=== PATIENT | male | born 1985 ===

== ENCOUNTER 2021-09-08 06:10 | Emergency (ER) | payer SELFPAY ==
[2021-09-08 06:17] VITALS: BMI 24.3
[2021-09-08 06:42] LABS: MANUAL DIFF FLAG NO
[2021-09-08 06:43] LABS: Basophils Absolute Auto 0.1 X10*3/uL (0.0-0.2); Basophils Percent Auto 0.6 % (0-2); Eosinophils Percent Auto 0.4 % (0-4); Hematocrit 43.4 % (42.0-52.0); Hemoglobin 14.1 g/dl (14.0-18.0); Imm Gran Abs Auto 0.03 X10*3/uL (0.00-0.03); Imm Gran Pct Auto 0.4 % (0.0-0.4); Lymphocytes Absolute Auto 1.6 X10*3/uL (1.2-4.9); Lymphocytes Percent Auto 19.4 % (20-40); Mean Corpuscular HGB Conc 32.5 g/dl (31.0-36.0); Mean Corpuscular Hemoglobin 28.7 pg (27.0-33.0); Mean Corpuscular Volume 88.2 fL (80.0-98.0); Mean Platelet Volume 10.5 fL (9.4-12.4); Monocytes Absolute Auto 0.7 X10*3/uL (0.1-1.2); Monocytes Percent Auto 8.4 % (2-11); Neutrophils Absolute Auto 5.8 x10*3/uL (2.0-8.3); Neutrophils Percent Auto 70.8 % (45-73); Platelet Count 316 X10*3/uL (160-400); Red Blood Count 4.92 X10*6/uL (4.60-5.80); Red Cell Distribution Width 11.9 % (11.0-16.0); White Blood Count 8.1 X10*3/uL (4.8-10.8)
--- NOTE | 2021-09-08 06:48 | ED_ITS ---
HPI - Psych General Chief Complaint: Psychiatric Symptoms Stated Complaint: section 12 Time Seen by Provider: 09/08/21 06:48 Source: patient Mode of arrival: EMS Limitations: no limitations History of Present Illness MD complaint: other (paranoid) Onset (ago): month(s) Duration: intermittent History of same: Yes Relieving factors: none Exacerbating factors: none Context: other (states a truck is following him on at work, he brainstorms and thinks people in the streets know what's on his TV, a nanny cam was found in his smoke detector this AM) Associated psychiatric symptoms: none Associated symptoms: denies other symptoms Treatments prior to arrival: placed on mental health hold Related Data Home Medications Medication Instructions Recorded Confirmed No Known Home Meds 09/08/21 09/08/21 Allergies Allergy/AdvReac Type Severity Reaction Status Date / Time No Known Allergies Allergy Unverified 01/26/20 15:35 [No Known Allergies*] Review of Systems Review of Systems: Constitutional : No Fever, No Chills ENT/Mouth : No Ear Pain, No Nasal Congestion, No sore throat Eyes: No Eye Pain, No Swelling, No Redness Cardiovascular : No Chest Pain, No SOB Respiratory : No Cough, No Sputum, No Dyspnea Gastrointestinal : No Nausea, No Vomiting, No Diarrhea, No Hematochezia, No Melena Genitourinary : No Dysuria, No Urinary Frequency, No Hematuria Musculoskeletal : No Myalgias Skin : No Skin Lesions, No rash Neuro : No Weakness, No Numbness, No Paresthesias, No Dizziness, No Headache Psych : positive Anxiety, no Depression, no SI/HI Heme/Lymph: No Lymphadenopathy Endocrine : No Polyuria, No Polydipsia All other systems reviewed and are negative COUNT INCLUDES [facility] Past Medical History Medical History (Updated 09/08/21 @ 07:18 by Karolina Lyle DO) Anxiety Social History Social History (Updated 09/08/21 @ 06:48 by Karolina Lyle DO) Alcohol intake: never Patient Tobacco Use Status: Never used Tobacco Use of substances other than those prescribed or required for medical reasons: Yes Substance Use Type: Crack/Cocaine Advance Directives: No Advance Directives Information Provided: No Healthcare Proxy: No Guardian: No Physical Exam Vital Signs: Vital Signs: Last Vital Signs Temp 97.7 F 09/08/21 09:20 Pulse 81 09/08/21 09:20 Resp 18 09/08/21 09:20 BP 150/81 H 09/08/21 09:20 Pulse Ox 99 09/08/21 09:20 BMI result Body Mass Index 24.3 Appearance: Alert. Oriented X3. No acute distress. hyperverbal, pressured speech, very animated. Eyes: Pupils equal, round and reactive to light. ENT: Pharynx normal. Neck: Normal inspection. Neck supple. CVS: Normal heart rate and rhythm. Pulses normal. Respiratory: No respiratory distress. Breath sounds normal. Abdomen: Soft and nontender. Skin: Skin warm and dry. Normal skin color. Normal skin turgor. Extremities: No lower extremity edema. No calf ttp Neuro: Oriented X 3. No motor deficit. No sensory deficit. CN2-12 intact Course Course Course Narrative: Physician observation started at 717am Patient placed in physician observation because the patient needed more time for BHN to assess the need for psych admission. At the time observation was started the patient's vitals were stable, patient is alert and oriented but slightly agitated/anxious, Neuro: nonfocal, CV RRR, Lungs clear. Tox positive for cocaine which he denied using any street drugs possible cause of his paranoia plan is to try ativan keep til AM and reassess see if this is related to cocaine abuse - CARE team. MDM - Psych MDM Narrative Medical decision making narrative: 36 yo male with no sig PMH here with c/o ongoing paranaoia but often ignores it mostly fixated on a truck following him. He notes he gets a weird feeling that something is happening and today found a nanny cam. He called PD repeatedly today and was brought here on section 12. No nanny cam found. Patient is very paranoid, hyperverbal, pressured speech. Denies substance abuse. Psych consult pending. Lab Data Result diagrams: 09/08/21 06:36 09/08/21 06:36 Labs: Lab Results 09/08/21 09/08/21 09/08/21 Range/Units 06:31 06:31 06:36 WBC 8.1 (4.8-10.8) X10*3/uL RBC 4.92 (4.60-5.80) X10*6/uL Hgb 14.1 (14.0-18.0) g/dl Hct 43.4 (42.0-52.0) % MCV 88.2 (80.0-98.0) fL MCH 28.7 (27.0-33.0) pg MCHC 32.5 (31.0-36.0) g/dl RDW 11.9 (11.0-16.0) % Plt Count 316 (160-400) X10*3/uL MPV 10.5 (9.4-12.4) fL Immature Gran % (Auto) 0.4 (0.0-0.4) % Neut % (Auto) 70.8 (45-73) % Lymph % (Auto) 19.4 L (20-40) % [place] % (Auto) 8.4 (2-11) % Eos % (Auto) 0.4 (0-4) % Baso % (Auto) 0.6 (0-2) % Lymph # (Auto) 1.6 (1.2-4.9) X10*3/uL [place] # (Auto) 0.7 (0.1-1.2) X10*3/uL Eos # (Auto) 0.0 (0.0-0.4) X10*3/uL Baso # (Auto) 0.1 (0.0-0.2) X10*3/uL Abs Immat Gran (auto) 0.03 (0.00-0.03) X10*3/uL Absolute Neuts (auto) 5.8 (2.0-8.3) x10*3/uL Absolute Nucleated RBC 0.000 (0.0-0.012) X10*3/uL Nucleated RBC % (auto) 0.0 (0.0-0.2) /100WBC Sodium (135-145) mmol/L Potassium (3.3-5.1) mmol/L Chloride (96-108) mmol/L Carbon Dioxide (22-29) mmol/L Anion Gap (12-20) BUN (9-16) mg/dL Creatinine (0.5-1.4) mg/dL Estim Creat Clear Calc Estimated GFR Random Glucose (60-115) mg/dL Calcium (8.4-10.2) mg/dL Salicylates (15-30) mg/dL Urine Opiates Screen Not Detected (Not Detect) Urine Fentanyl Screen Not Detected (Not Detect) Acetaminophen (<30) mcg/mL Ur Barbiturates Screen Not Detected (Not Detect) Ur Phencyclidine Scrn Not Detected (Not Detect) Ur Amphetamines Screen Not Detected (Not Detect) U Benzodiazepines Scrn Not Detected (Not Detect) Urine Cocaine Screen POSITIVE H (Not Detect) U Marijuana (THC) Screen Not Detected (Not Detect) Ethyl Alcohol mg/dL COVID-19 (EMILIA) Negative (Negative) COVID-19 Clin Com See Note 09/08/21 09/08/21 Range/Units 06:36 06:36 WBC (4.8-10.8) X10*3/uL RBC (4.60-5.80) X10*6/uL Hgb (14.0-18.0) g/dl Hct (42.0-52.0) % MCV (80.0-98.0) fL MCH (27.0-33.0) pg MCHC (31.0-36.0) g/dl RDW (11.0-16.0) % Plt Count (160-400) X10*3/uL MPV (9.4-12.4) fL Immature Gran % (Auto) (0.0-0.4) % Neut % (Auto) (45-73) % Lymph % (Auto) (20-40) % [place] % (Auto) (2-11) % Eos % (Auto) (0-4) % Baso % (Auto) (0-2) % Lymph # (Auto) (1.2-4.9) X10*3/uL [place] # (Auto) (0.1-1.2) X10*3/uL Eos # (Auto) (0.0-0.4) X10*3/uL Baso # (Auto) (0.0-0.2) X10*3/uL Abs Immat Gran (auto) (0.00-0.03) X10*3/uL Absolute Neuts (auto) (2.0-8.3) x10*3/uL Absolute Nucleated RBC (0.0-0.012) X10*3/uL Nucleated RBC % (auto) (0.0-0.2) /100WBC Sodium 138 (135-145) mmol/L Potassium 4.1 (3.3-5.1) mmol/L Chloride 105 (96-108) mmol/L Carbon Dioxide 23 (22-29) mmol/L Anion Gap 14 (12-20) BUN 15 (9-16) mg/dL Creatinine 1.07 (0.5-1.4) mg/dL Estim Creat Clear Calc 87.5 Estimated GFR > 60 Random Glucose 89 (60-115) mg/dL Calcium 9.5 (8.4-10.2) mg/dL Salicylates < 5.0 L (15-30) mg/dL Urine Opiates Screen (Not Detect) Urine Fentanyl Screen (Not Detect) Acetaminophen < 1 (<30) mcg/mL Ur Barbiturates Screen (Not Detect) Ur Phencyclidine Scrn (Not Detect) Ur Amphetamines Screen (Not Detect) U Benzodiazepines Scrn (Not Detect) Urine Cocaine Screen (Not Detect) U Marijuana (THC) Screen (Not Detect) Ethyl Alcohol < 10 mg/dL COVID-19 (EMILIA) (Negative) COVID-19 Clin Com Discharge Plan Discharge Clinical Impression: Cocaine abuse, Acute paranoia Patient Disposition: Still a Patient Prescriptions: No Action No Known Home Meds 0RF
[2021-09-08 06:51] LABS: COVID-19 Test Negative (Negative)
[2021-09-08 06:53] LABS: Amphetamine Screen Urine Not Detected (Not Detect); Barbiturates, Urine Not Detected (Not Detect); Benzodiazepines Screen Urine Not Detected (Not Detect); Cannabinoid Screen Urine Not Detected (Not Detect); Cocaine Screen Urine POSITIVE (Not Detect); Fentanyl, urine Not Detected (Not Detect); Opiate Screen Urine Not Detected (Not Detect); Phencyclidine Screen Urine Not Detected (Not Detect)
[2021-09-08 06:54] LABS: Ethanol < 10 mg/dL
[2021-09-08 07:08] LABS: Acetaminophen LAB < 1 mcg/mL (<30); Anion Gap 14 (12-20); Blood Urea Nitrogen 15 mg/dL (9-16); Calcium 9.5 mg/dL (8.4-10.2); Carbon Dioxide 23 mmol/L (22-29); Chloride 105 mmol/L (96-108); Creatinine Clr Calc Pharmacy 87.5; Estimated Glomerular Filt Rate > 60; Glucose Random 89 mg/dL (60-115); Potassium 4.1 mmol/L (3.3-5.1); Salicylate < 5.0 mg/dL (15-30); Sodium 138 mmol/L (135-145)
[2021-09-08 09:03] VITALS: RESP 16
--- NOTE | 2021-09-08 09:17 | PC.NURSE ---
CARE team with patient
[2021-09-08 09:20] VITALS: BP 150/81; PULSE 81; RESP 18; TEMP 36.5; O2SAT 99
--- NOTE | 2021-09-08 09:49 | PC.NURSE ---
late entry for 7:45 am. 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 his smoke detector has a nanny cam in it, police have been notified but didn't even look in the smoke detector. they're probably in on it . Pt repeating that he needs to leave because he has to be work by 4pm.
[2021-09-08] MEDS: LORazepam 1 MG TABLET PO (11:03)
--- NOTE | 2021-09-08 12:57 | ECG_ITS ---
Test Reason : cocaine use Blood Pressure : / mmHG Vent. Rate : 065 BPM Atrial Rate : 065 BPM P-R Int : 126 ms QRS Dur : 082 ms QT Int : 378 ms P-R-T Axes : 017 080 005 degrees QTc Int : 393 ms Normal sinus rhythm Nonspecific T wave abnormality Abnormal ECG When compared with ECG of 13-SEP-2009 01:30, Vent. rate has decreased BY 59 BPM Referred By: Karolina Lyle Electronically Signed By:Saqib Wong
--- NOTE | 2021-09-08 12:58 | PC.NURSE ---
Late entry: 10 minutes after receiving ativan po patient reported feeling better . stated i can go home now. i will still check my smoke detectors but i feel less anxious about it now . Fany made aware.
[2021-09-08 17:16] VITALS: BP 130/79; PULSE 80; RESP 18; O2SAT 99
--- NOTE | 2021-09-09 06:17 | PC.NURSE ---
Patient slept through the night, no distress observed/reported, behavior non concerning, patient currently not on any medication, disposition per care team is section 12 Inpatient bed search, VSS, will continue to monitor.
[2021-09-09 06:58] VITALS: BP 125/70; PULSE 81; RESP 16; TEMP 36.4; O2SAT 94
--- NOTE | 2021-09-09 10:47 | PC.NURSE ---
pt cleared for discharge. belongings returned. pt reported that his brother will pick him up.
== END 2021-09-09 10:40 | disposition home or self-care (01) ==
PROVIDERS: Emergency Provider Emergency Medicine
DX: F22 Delusional disorders (principal); F14.10 Cocaine abuse, uncomplicated; Z20.822 Contact with and (suspected) exposure to COVID-19
CPT/HCPCS: 36415; 80048; 80143; 80179; 80307; 82077; 85025; 87635; 93005; 99285

== ENCOUNTER 2021-09-16 16:46 | Emergency (ER) | payer MEDICAID, SELFPAY ==
--- NOTE | 2021-09-16 | ECG_ITS ---
Test Reason : DRUG USE Blood Pressure : / mmHG Vent. Rate : 100 BPM Atrial Rate : 100 BPM P-R Int : 132 ms QRS Dur : 082 ms QT Int : 328 ms P-R-T Axes : 072 065 004 degrees QTc Int : 423 ms Normal sinus rhythm Minimal voltage criteria for LVH, may be normal variant ( Sokolow-Nagel ) Nonspecific ST and T wave abnormality Abnormal ECG When compared with ECG of 08-SEP-2021 17:06, Vent. rate has increased BY 35 BPM Referred By: Generic ED Physician Electronically Signed By:JHONY RESENDIZ MD
[2021-09-16 17:31] VITALS: BP 170/109; PULSE 106; RESP 18; TEMP 36.9; O2SAT 98; BMI 25.0
== END 2021-09-16 20:05 | disposition left against medical advice (07) ==
LOC: HO.ED 19:54
PROVIDERS: Emergency Provider Emergency Medicine
DX: R68.89 Other general symptoms and signs (principal); F14.90 Cocaine use, unspecified, uncomplicated; R94.31 Abnormal electrocardiogram [ECG] [EKG]
CPT/HCPCS: 93005; 99283

== ENCOUNTER 2021-10-24 18:51 | Emergency (ER) | payer OTHER, SELFPAY ==
[2021-10-24 19:01] VITALS: BP 140/82; BP 90/58; PULSE 116; PULSE 130; RESP 18; TEMP 37.1; O2SAT 92; O2SAT 99; BMI 26.4
--- NOTE | 2021-10-24 19:19 | ED.PSYCH ---
HPI - Psych General Chief Complaint: ETOH/Substance Use Stated Complaint: OD Time Seen by Provider: 10/24/21 19:07 Source: patient and EMS Mode of arrival: EMS Limitations: no limitations History of Present Illness HPI Narrative: 36-year-old male brought in with EMS and police after patient was running into traffic on [address] in [place]. Patient tells me that he drank 9-11 coronas. He tells me that he was pretending to play basketball and dribble the ball in the street. Patient tells me that he knows how fast the car was going and he was avoiding it. He does not feel like he was taking any chances. He denies any suicidal or homicidal ideations. No physical complaints. Patient tells me he only drinks beer and denies using any substances. He does tell me that he recently broke up with his girlfriend and has made him quite sad and depressed. Related Data Home Medications Medication Instructions Recorded Confirmed No Known Home Meds 09/08/21 09/08/21 Allergies Allergy/AdvReac Type Severity Reaction Status Date / Time No Known Allergies Allergy Unverified 01/26/20 15:35 [No Known Allergies*] Review of Systems Review of Systems: Yes all other systems are reviewed and are negative Constitutional: Constitutional: Reports no additional constitutional complaints, Denies body ache(s), Denies chills, Denies fever(s), Denies headache(s) and Denies weakness Eyes: Eyes: Reports no additional eye complaints and Denies change in vision ENT: Reports system reviewed and no additional complaints, except as documented, Denies dizziness, Denies headache(s), Denies nasal congestion, Denies nasal discharge and Denies neck pain Cardiovascular: Cardiovascular: Reports no additional cardiovascular complaints, Denies chest pain, Denies leg edema and Denies dyspnea Respiratory: Respiratory: Reports no additional respiratory complaints, Denies cough and Denies dyspnea Gastrointestinal: Gastrointestinal: Reports no additional gastrointestinal complaints, Denies abdominal pain, Denies diarrhea, Denies nausea and Denies vomiting Genitourinary: Genitourinary: Denies urinary incontinence Musculoskeletal: Musculoskeletal: Reports no additional musculoskeletal complaints, Denies back pain, Denies arthralgias, Denies joint swelling, Denies neck pain, Denies numbness and Denies tingling Integumentary/Breasts: Skin/Breast: Reports system reviewed and no additional complaints, except as docu and Denies rash Neurologic: Reports system reviewed and no additional complaints, except as documented, Denies Abnormal speech present, Denies dizziness, Denies headache(s), Denies numbness, Denies tingling and Denies weakness Psychiatric: Psychiatric: Reports depression [facility] Past Medical History Attestation statement: The following information was validated with the patient. Source: old records reviewed and nursing notes reviewed Medical History Anxiety Social History Social History Alcohol intake: current Patient Tobacco Use Status: Never used Tobacco Use of substances other than those prescribed or required for medical reasons: Yes Substance Use Type: Crack/Cocaine Substance Use Type Other:: PCP Advance Directives: No Physical Exam Vital Signs: Vital Signs: Last Vital Signs Temp 98.7 F 10/24/21 19:01 Pulse 99 10/24/21 21:22 Resp 16 10/24/21 21:22 BP 105/51 L 10/24/21 22:17 Pulse Ox 94 10/24/21 21:22 O2 Del Method 10/24/21 21:22 BMI result Body Mass Index 26.4 Const: General: cooperative, healthy appearing, comfortable and no acute distress Orientation/consciousness: patient oriented x3 Limitations: no limitations HEENT: Head: Yes normal to inspection, No Clark's sign and No raccoon eyes Ears: hearing grossly normal bilaterally General nose exam: Normal external nose present Face and sinus: Yes normal facial exam Mouth: Normal oral and palatal mucosa present Throat: Yes posterior oropharynx normal Eyes: General: appearance normal, both eyes and all related structures Pupils: Equal, round and reactive pupils present Neck: Neck: Yes normal visual inspection, Yes full ROM, Yes no lymphadenopathy and Yes no meningeal signs Chest: Chest palpation & inspection: normal inspection of the chest Resp: Effort & Inspection: normal respiratory effort Auscultation: clear to auscultation bilaterally Cardio: Rate: regular rate Rhythm: regular rhythm Peripheral pulses: Peripheral pulses 2+ throughout GI: Inspection: Yes normal to inspection Palpation (GI): Soft to palpation and nontender Auscultation: normal bowel sounds Back/Spine/Pelvis: Thoracic/Lumbar Spine: thoracic and lumbar spine normal to inspection Skin: General skin exam: no rashes or lesions noted Neuro: General: patient oriented x3, moves all extremities, no meningeal signs, no focal motor deficits and normal sensation to monofilament Cranial nerves: Yes Equal, round and reactive pupils present Cognition (Neuro): normal cognition Speech: No Abnormal speech present Motor exam (neuro): 5/5 motor strength present throughout Sensory Exam: Normal double simultaneous stimulation for sensation Extrem: General: Yes normal to inspection Course Course Course Narrative: 36-year-old male here after found running into traffic [place] a main road [place] a nearby town. Patient reports he drank some alcohol but denies any substance use. He denies any suicidal thoughts. He does report he is feeling depressed after recently breaking up with his girlfriend. No physical complaints. No concern for acute ingestion or trauma. Patient tells me he had has not had anything to eat or drink since last night. His blood pressure is mildly low. He is alert and oriented. Patient will have labs, drug screen. Will give him something to eat or drink. Will have crisis come and evaluate him he is clinically sober Reevaluation(s) Reevaluation #1: 10/25 0200-Sign out to night team pending crisis evaluation and patient being clinically sober [facility] - Psych Medical Records Attestation: I reviewed the patient's medical records. Lab Data Attestation: I reviewed the patient's lab results. Result diagrams: 10/24/21 19:31 10/24/21 19:31 Labs: Lab Results 10/24/21 10/24/21 10/24/21 Range/Units 19:31 19:31 19:31 WBC 6.1 (4.8-10.8) X10*3/uL RBC 4.63 (4.60-5.80) X10*6/uL Hgb 13.5 L (14.0-18.0) g/dl Hct 40.9 L (42.0-52.0) % MCV 88.3 (80.0-98.0) fL MCH 29.2 (27.0-33.0) pg MCHC 33.0 (31.0-36.0) g/dl RDW 12.2 (11.0-16.0) % Plt Count 290 (160-400) X10*3/uL MPV 10.2 (9.4-12.4) fL Immature Gran % (Auto) 0.3 (0.0-0.4) % Neut % (Auto) 74.2 H (45-73) % Lymph % (Auto) 18.8 L (20-40) % [place] % (Auto) 5.9 (2-11) % Eos % (Auto) 0.3 (0-4) % Baso % (Auto) 0.5 (0-2) % Lymph # (Auto) 1.1 L (1.2-4.9) X10*3/uL [place] # (Auto) 0.4 (0.1-1.2) X10*3/uL Eos # (Auto) 0.0 (0.0-0.4) X10*3/uL Baso # (Auto) 0.0 (0.0-0.2) X10*3/uL Abs Immat Gran (auto) 0.02 (0.00-0.03) X10*3/uL Absolute Neuts (auto) 4.5 (2.0-8.3) x10*3/uL Absolute Nucleated RBC 0.000 (0.0-0.012) X10*3/uL Nucleated RBC % (auto) 0.0 (0.0-0.2) /100WBC Sodium 142 (135-145) mmol/L Potassium 4.0 (3.3-5.1) mmol/L Chloride 109 H (96-108) mmol/L Carbon Dioxide 23 (22-29) mmol/L Anion Gap 14 (12-20) BUN 7 L D (9-16) mg/dL Creatinine 0.76 (0.5-1.4) mg/dL Estim Creat Clear Calc 110.3 Estimated GFR > 60 Random Glucose 90 (60-115) mg/dL Calcium 8.8 D (8.4-10.2) mg/dL Total Bilirubin (0.0-1.0) mg/dL Direct Bilirubin (0.0-0.5) mg/dL AST (5-37) U/L ALT (0-40) U/L Alkaline Phosphatase (39-117) U/L Total Protein (6.5-8.0) g/dL Albumin (3.5-5.0) g/dL Ethyl Alcohol 195 mg/dL COVID-19 (EMILIA) (Negative) COVID-19 Clin Com 10/24/21 10/24/21 Range/Units 19:31 23:05 WBC (4.8-10.8) X10*3/uL RBC (4.60-5.80) X10*6/uL Hgb (14.0-18.0) g/dl Hct (42.0-52.0) % MCV (80.0-98.0) fL MCH (27.0-33.0) pg MCHC (31.0-36.0) g/dl RDW (11.0-16.0) % Plt Count (160-400) X10*3/uL MPV (9.4-12.4) fL Immature Gran % (Auto) (0.0-0.4) % Neut % (Auto) (45-73) % Lymph % (Auto) (20-40) % [place] % (Auto) (2-11) % Eos % (Auto) (0-4) % Baso % (Auto) (0-2) % Lymph # (Auto) (1.2-4.9) X10*3/uL [place] # (Auto) (0.1-1.2) X10*3/uL Eos # (Auto) (0.0-0.4) X10*3/uL Baso # (Auto) (0.0-0.2) X10*3/uL Abs Immat Gran (auto) (0.00-0.03) X10*3/uL Absolute Neuts (auto) (2.0-8.3) x10*3/uL Absolute Nucleated RBC (0.0-0.012) X10*3/uL Nucleated RBC % (auto) (0.0-0.2) /100WBC Sodium (135-145) mmol/L Potassium (3.3-5.1) mmol/L Chloride (96-108) mmol/L Carbon Dioxide (22-29) mmol/L Anion Gap (12-20) BUN (9-16) mg/dL Creatinine (0.5-1.4) mg/dL Estim Creat Clear Calc Estimated GFR Random Glucose (60-115) mg/dL Calcium (8.4-10.2) mg/dL Total Bilirubin 0.4 (0.0-1.0) mg/dL Direct Bilirubin 0.2 (0.0-0.5) mg/dL AST 53 H (5-37) U/L ALT 46 H (0-40) U/L Alkaline Phosphatase 110 (39-117) U/L Total Protein 6.6 (6.5-8.0) g/dL Albumin 4.1 (3.5-5.0) g/dL Ethyl Alcohol mg/dL COVID-19 (EMILIA) Negative (Negative) COVID-19 Clin Com See Note Discharge Plan Discharge Clinical Impression: Alcoholic intoxication Patient Disposition: Still a Patient Prescriptions: No Action No Known Home Meds
[2021-10-24 19:35] LABS: MANUAL DIFF FLAG NO
[2021-10-24 19:36] LABS: Basophils Percent Auto 0.5 % (0-2); Eosinophils Percent Auto 0.3 % (0-4); Hematocrit 40.9 % (42.0-52.0); Hemoglobin 13.5 g/dl (14.0-18.0); Imm Gran Abs Auto 0.02 X10*3/uL (0.00-0.03); Imm Gran Pct Auto 0.3 % (0.0-0.4); Lymphocytes Absolute Auto 1.1 X10*3/uL (1.2-4.9); Lymphocytes Percent Auto 18.8 % (20-40); Mean Corpuscular Hemoglobin 29.2 pg (27.0-33.0); Mean Corpuscular Volume 88.3 fL (80.0-98.0); Mean Platelet Volume 10.2 fL (9.4-12.4); Monocytes Absolute Auto 0.4 X10*3/uL (0.1-1.2); Monocytes Percent Auto 5.9 % (2-11); Neutrophils Absolute Auto 4.5 x10*3/uL (2.0-8.3); Neutrophils Percent Auto 74.2 % (45-73); Platelet Count 290 X10*3/uL (160-400); Red Blood Count 4.63 X10*6/uL (4.60-5.80); Red Cell Distribution Width 12.2 % (11.0-16.0); White Blood Count 6.1 X10*3/uL (4.8-10.8)
[2021-10-24 19:50] LABS: Ethanol 195 mg/dL
[2021-10-24 19:52] LABS: Anion Gap 14 (12-20); Blood Urea Nitrogen 7 mg/dL (9-16); Calcium 8.8 mg/dL (8.4-10.2); Carbon Dioxide 23 mmol/L (22-29); Chloride 109 mmol/L (96-108); Creatinine Clr Calc Pharmacy 110.3; Estimated Glomerular Filt Rate > 60; Glucose Random 90 mg/dL (60-115); Sodium 142 mmol/L (135-145)
[2021-10-24 19:54] LABS: Alanine Aminotransferase 46 U/L (0-40); Albumin Level 4.1 g/dL (3.5-5.0); Alkaline Phosphatase 110 U/L (39-117); Aspartate Amino Transferase 53 U/L (5-37); Bilirubin Direct 0.2 mg/dL (0.0-0.5); Bilirubin Total 0.4 mg/dL (0.0-1.0); Total Protein 6.6 g/dL (6.5-8.0)
--- NOTE | 2021-10-24 20:09 | PC.NURSE ---
pt is ramping up about getting his repeat blood draw that hemolised. , pt is intoxicated, given another chance to settle down. security is present and pt wants to go to [facility].
--- NOTE | 2021-10-24 20:10 | MHC.RECOVSUP ---
? Reason for consult:Recovery Support o Current location:ED-17 o Identified substance use concern:ETOH - Support ? Intervention: o Community resources provided o Harm reduction discussion ? Plan: o Patient to follow up with [facility] after discharge ? Additional information:Patient refuses detox, referred patient to [facility], had a harm reduction conversation, referred patient to [facility].
[2021-10-24 21:22] VITALS: BP 113/52; PULSE 99; RESP 16; O2SAT 94
[2021-10-24 22:11] VITALS: BP 110/34
[2021-10-24 22:15] VITALS: BP 101/39
[2021-10-24 22:17] VITALS: BP 105/51
[2021-10-24 23:25] LABS: COVID-19 Test Negative (Negative)
[2021-10-25 04:14] LABS: Amphetamine Screen Urine Not Detected (Not Detect); Barbiturates, Urine Not Detected (Not Detect); Benzodiazepines Screen Urine Not Detected (Not Detect); Cannabinoid Screen Urine POSITIVE (Not Detect); Cocaine Screen Urine Not Detected (Not Detect); Fentanyl, urine Not Detected (Not Detect); Opiate Screen Urine Not Detected (Not Detect); Phencyclidine Screen Urine Not Detected (Not Detect)
--- NOTE | 2021-10-25 06:26 | PC.NURSE ---
Patient slept through the night, no distress observed/reported, asymptomatic of withdrawal, VSS, BHN referral completed/confirmed/pending evaluation in the morning, patient is currently not on any home medication, coherent, misbehavior non concerning, will continue to monitor.
--- NOTE | 2021-10-25 07:28 | PC.NURSE ---
patient appears to remain asleep at present respirations are even and unlabored patient appears in no distress
--- NOTE | 2021-10-25 10:27 | MHC.CARE ---
Pt presented to [facility] ED via EMS 10/24/21 after presenting intoxicated the community acting bizarrely. Pts BAL was 198. Today, Pt is presenting as alert, orientated and engaged. Pt was requesting to be discharged. Pt denies current SI/HI/VH/AH. Pt reports he was intoxicated last evening which was resulting in his behaviors. Pt expressed interest in referral to [facility] though indicates he has to wait 2 months due to missing appts? CARE Team communicated information to Dr. Em CARE Team completed [facility] referral. Pt provided with [facility] Crisis information.
== END 2021-10-25 09:33 | disposition home or self-care (01) ==
PROVIDERS: Nurse Practitioner Family; Emergency Provider Emergency Medicine Emergency Medical Services
DX: F10.920 Alcohol use, unspecified with intoxication, uncomplicated (principal); Y90.6 Blood alcohol level of 120-199 mg/100 ml; F22 Delusional disorders; F32.A Depression, unspecified; F41.9 Anxiety disorder, unspecified; Z20.822 Contact with and (suspected) exposure to COVID-19
CPT/HCPCS: 36415; 80048; 80076; 80307; 82077; 85025; 87635; 99285

== ENCOUNTER 2022-09-21 00:45 | Inpatient (IN) | payer OTHER, SELFPAY ==
[2022-09-21] VITALS (7 sets, daily range): BP systolic 105–166; BP diastolic 61–109; PULSE 59–76; RESP 16–18; TEMP 36.6–36.7; O2SAT 97–98; BMI 26.6; BMI 22.8
[2022-09-21 01:30] LABS: MANUAL DIFF FLAG NO
[2022-09-21 01:32] LABS: Basophils Percent Auto 0.4 % (0-2); Hematocrit 44.4 % (42.0-52.0); Hemoglobin 14.5 g/dl (14.0-18.0); Imm Gran Abs Auto 0.02 X10*3/uL (0.00-0.03); Imm Gran Pct Auto 0.2 % (0.0-0.4); Lymphocytes Absolute Auto 1.6 X10*3/uL (1.2-4.9); Lymphocytes Percent Auto 17.3 % (20-40); Mean Corpuscular HGB Conc 32.7 g/dl (31.0-36.0); Mean Corpuscular Hemoglobin 28.4 pg (27.0-33.0); Mean Corpuscular Volume 87.1 fL (80.0-98.0); Monocytes Absolute Auto 0.7 X10*3/uL (0.1-1.2); Monocytes Percent Auto 7.5 % (2-11); Neutrophils Absolute Auto 6.7 x10*3/uL (2.0-8.3); Neutrophils Percent Auto 74.6 % (45-73); Platelet Count 327 X10*3/uL (160-400); Red Cell Distribution Width 11.7 % (11.0-16.0)
[2022-09-21 01:33] LABS: Appearance Urine Clear; Color Urine Yellow; Glucose Urine UA Negative (Negative); Leukocyte Esterase Urine Negative (Negative); Nitrite Urine Negative (Negative); Specific Gravity - Urine <= 1.005 (1.005-1.025); Urine Blood Negative (Negative); Urine Ketones Negative (Negative); Urine Protein Negative (Neg-Trace)
[2022-09-21 01:42] LABS: COVID-19 Test Negative (Negative); IDNOW Serial# 6674DD1D
[2022-09-21 01:43] LABS: Amphetamine Screen Urine Not Detected (Not Detect); Barbiturates, Urine Not Detected (Not Detect); Benzodiazepines Screen Urine Not Detected (Not Detect); Cannabinoid Screen Urine POSITIVE (Not Detect); Cocaine Screen Urine Not Detected (Not Detect); Fentanyl, urine Not Detected (Not Detect); Opiate Screen Urine Not Detected (Not Detect); Phencyclidine Screen Urine Not Detected (Not Detect)
[2022-09-21 01:45] LABS: Alanine Aminotransferase 93 U/L (0-40); Albumin Level 4.6 g/dL (3.5-5.0); Alkaline Phosphatase 88 U/L (39-117); Anion Gap 15 (12-20); Aspartate Amino Transferase 170 U/L (5-37); Bilirubin Total 0.9 mg/dL (0.0-1.0); Blood Urea Nitrogen 8 mg/dL (9-16); Calcium 10.1 mg/dL (8.4-10.2); Carbon Dioxide 26 mmol/L (22-29); Chloride 101 mmol/L (96-108); Creatinine Clr Calc Pharmacy 79.1; Estimated Glomerular Filt Rate > 60; Ethanol < 10 mg/dL; Glucose Random 99 mg/dL (60-115); Potassium 3.9 mmol/L (3.3-5.1); Sodium 138 mmol/L (135-145); Total Protein 7.3 g/dL (6.5-8.0)
[2022-09-21] MEDS: OLANZapine 5 MG TABLET PO (01:46)
[2022-09-21] MEDS: diphenhydrAMINE HCL 50 MG/ML VIAL IM (03:15)
[2022-09-21] MEDS: Haloperidol Lactate 5 MG/ML VIAL IM (03:15)
[2022-09-21] MEDS: LORazepam 2 MG/ML VIAL IM (03:15)
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
--- NOTE | 2022-09-21 05:04 | PC.NURSE ---
Patient is paranoid reporting people have placed bug in his brain, pacing and restless, Olanzapine 5 mg po administered at 0146 without any effect, patient attempted to over nurses station, engages in high risk behavior difficult to redirect due to paranoia, provider notified/ordered Ativan 2 mg IM, Haldol 5 mg IM, and Benadryl 50 mg IM/administered as ordered at 031 with delayed but + effect, patient has been sleeping since 444, med rec completed/currently not on any medication, care consult ordered/pending evaluation, VSS, will continue to monitor.
--- NOTE | 2022-09-21 10:02 | MHC.CARE ---
CARE Team attempted to meet with Pt. Pt asked t/w to come back later.
--- NOTE | 2022-09-21 11:05 | MHC.CARE ---
CARE Team attempted to meet with Pt again, Pt not interviewable at this time
--- NOTE | 2022-09-21 18:32 | PC.NURSE ---
pt has been sleeping the entire sift, he does briefly answer questions but will fall asleep almost immed. has not eaten anything all day and has not gotten up at all. VSS. going to [address] per care team, i called and spoke to Corinne and she was unable to take report at this time and would not give me a time when he would be admitted. He has no meds to administer.
--- NOTE | 2022-09-21 20:59 | PC.NURSE ---
Pt is resting in bed, denies any SI/HI. pt contracts for safety. Pt ate 50% of his meal and decided to go back to bed. Pt in NAD, denies any CP,SOB, feeling of faint, numbness/tingling to extremites or N/V. video monitor in motion. Pt is awaiting to go to the Medr unit for further care.
--- NOTE | 2022-09-21 23:46 | PC.ADMIT ---
Carmelo is a 37 year old Czech speaking male admitted to [facility] on a CV from our ED. Per crisis report the patient had self presented to the police department with an 8 inch knife and stated that he wanted to kill himself or to be locked up forever . He was reported to be hearing people telling him to kill himself over the past several days and that people were putting bleach in the water to poison him. the patient had been evaluated in September of 2021 at [facility] but did not follow up with out patient services. Per the patients brother Carmelo had been renting a room in someone's basement when his behavior became erratic with increasing paranoia. Last week he reportedly broke a TV and was acting erratic and experiencing hallucinations. The patient denies any current auditory/visual hallucinations, depression, anxiety, or suicidal/homicidal ideation. he is pleasant and cooperative with the admission, he is alert and oriented X'4, and future focused. He is noted to have a large open blister on the plantar surface of his left foot and a large intact callous in the plantar surface of his right foot, no other skin issues noted.
[2022-09-22 10:39] LABS: Estimated Average Glucose 82 mg/dL; Hemoglobin A1c % 4.5 %
[2022-09-22 10:52] VITALS: BP 168/91; PULSE 96; RESP 18; TEMP 36.2; O2SAT 99
[2022-09-22 11:40] LABS: Alanine Aminotransferase 86 U/L (0-40); Albumin Level 4.6 g/dL (3.5-5.0); Alkaline Phosphatase 86 U/L (39-117); Anion Gap 12 (12-20); Aspartate Amino Transferase 122 U/L (5-37); Bilirubin Total 0.5 mg/dL (0.0-1.0); Blood Urea Nitrogen 16 mg/dL (9-16); Carbon Dioxide 29 mmol/L (22-29); Chloride 102 mmol/L (96-108); Cholesterol 193 mg/dL; Creatinine Clr Calc Pharmacy 82.1; Estimated Glomerular Filt Rate > 60; Glucose Fasting 91 mg/dL (60-99); HDL Cholesterol 51 mg/dL; LDL Cholesterol Calculated 122 mg/dl; Potassium 4.3 mmol/L (3.3-5.1); Sodium 139 mmol/L (135-145); Total Protein 7.4 g/dL (6.5-8.0); Triglycerides 101 mg/dL
[2022-09-22 12:04] LABS: Free T4 (Free Thyroxine) 1.28 ng/dL (0.71-1.85); Thyroid Stimulating Hormone 0.34 uIU/mL (0.32-4.0); Vitamin B12 614 pg/mL (200-900)
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
[2022-09-22] MEDS: Nicotine Polacrilex 2 MG GUM 4 MG BUCCAL (13:48)
--- NOTE | 2022-09-22 16:13 | MHC.CLN ---
NUTRITION CONSULT FOR WEIGHT LOSS. REPORTED THAT WEIGHED SELF TODAY AND [id number]#. WEIGHT APPROX ONE YEAR [id number]=255#. -13.5% WEIGHT LOSS X ONE YEAR. STATED THAT IS TRYING TO LOSE WEIGHT BY RUNNING. DISCUSSED THAT CURRENT WEIGHT FOR HEIGHT IS WITHIN NORMAL LIMITS (BMI=22.8). NO NEW NUTRITION INTERVENTIONS AT THIS TIME.
[2022-09-22 20:10] VITALS: BP 146/90; PULSE 80; RESP 16; TEMP 36.8; O2SAT 97
[2022-09-23 08:48] VITALS: BP 107/74; PULSE 75; RESP 18; TEMP 36.6; O2SAT 95
[2022-09-23] MEDS: HaloperidoL 5 MG TABLET PO ×2 (10:53→19:19)
--- NOTE | 2022-09-23 15:41 | HO.PSYCHPN ---
Subjective Subjective Date of Service: 09/23/22 Reason For Visit: Suicidal ideation Interim History: calm, cooperative. states he will take the medications as prescribed and follow all the rules. per staff, pt had declined medications yesterday and last night. states he is feeling good. yet appear anxious to staff. asking staff and peers for a nicotine vape. chapito in 1:1 mtg. slept about 5 hours. Mental Status Exam Mental Status Exam Narrative: adequately dressed and groomed. no PMA/PMR. cooperative. speech incr rate and amount. incr loudness, nml latency and prosody. thoughts linear and questionably logical. affect less labile, full-range, hyper-intense. no SI/SIBI/HI/AVH. Diagnostics Vital Signs (24Hr): Vital Signs - 24 hr 09/22/22 20:10 09/23/22 08:48 Temperature 98.2 F 97.9 F Pulse Rate 80 75 Respiratory Rate 16 18 Blood Pressure 146/90 H 107/74 Pulse Oximetry 97 95 Oxygen Delivery Method Room Air Room Air BMI result Body Mass Index 22.8 Labs 09/21/22 01:24 09/22/22 09:33 Labs: Laboratory Results - last 48 hr 09/22/22 09/22/22 09:33 09:33 Sodium 139 Potassium 4.3 Chloride 102 Carbon Dioxide 29 Anion Gap 12 BUN 16 Creatinine 1.05 Estim Creat Clear Calc 82.1 Estimated GFR > 60 Fasting Glucose 91 Estimat Average Glucose 82 Hemoglobin A1c % 4.5 Calcium 10.0 Total Bilirubin 0.5 AST 122 H ALT 86 H Alkaline Phosphatase 86 Total Protein 7.4 Albumin 4.6 Triglycerides 101 Cholesterol 193 LDL Cholesterol, Calc 122 HDL Cholesterol 51 Vitamin B12 614 TSH 0.34 Free T4 1.28 Medications Medications Current Medications Acetaminophen (Acetaminophen 325 Mg Tablet) 650 mg PO Q6H PRN PRN Reason: Headache/Pain Mild Scale (1-3) Al Hydroxide/Mg Hydroxide (Magnesium Hydrox/Alum Hydrox 30 Ml Oral.Susp) 30 ml PO Q6H PRN PRN Reason: Heartburn/Nausea Haloperidol (Haloperidol 5 Mg Tablet) 5 mg PO BEDTIME LICO Last Admin: 09/22/22 20:42 Dose: Not Given Hydroxyzine HCl (Hydroxyzine Hcl 50 Mg Tablet) 50 mg PO Q6H PRN PRN Reason: Anxiety Hydroxyzine HCl (Hydroxyzine Hcl 50 Mg Tablet) 50 mg PO BEDTIME LICO Last Admin: 09/22/22 20:42 Dose: Not Given Magnesium Hydroxide (Milk Of Magnesia 30 Ml Oral.Susp) 30 ml PO DAILY PRN PRN Reason: Constipation Nicotine Polacrilex (Nicotine Polacrilex 2 Mg Gum) 4 mg BUCCAL Q2H PRN PRN Reason: Nicotine Cravings Last Admin: 09/22/22 13:48 Dose: 4 mg Olanzapine (Olanzapine Odt 10 Mg Tab.Rapdis) 10 mg TRANSLINGU BID PRN PRN Reason: agitation/psychosis Trazodone HCl (Trazodone Hcl 50 Mg Tablet) 50 mg PO BEDTIME MRX1 PRN PRN Reason: Insomnia Allergies Allergies Allergy/AdvReac Type Severity Reaction Status Date / Time No Known Allergies Allergy Unverified 01/26/20 15:35 [No Known Allergies*] Assessment & Plan Assessment & Plan (1) Acute psychosis: Status: Acute Code(s): F23 - Brief psychotic disorder Plan 09/22: start haldol 2 mg now and 5 mg QHS. 09/23: pt refused meds last night. slept 5 hours, described as grandiose. states this morning he will take medications and follow rules. one time haldol 5 mg ordered. Reason for continued inpatient stay Substantial Risk for: harm to self, inability to function and rapid decompensation Time Spent With Patient Time: Total time managing care of this patient today ____ minutes.
[2022-09-23 18:00] VITALS: BP 147/67; PULSE 75
[2022-09-23] MEDS: hydrOXYzine HCL 50 MG TABLET PO (19:19)
[2022-09-24 09:17] VITALS: BP 128/81; PULSE 69; RESP 18; TEMP 36.3; O2SAT 100
--- NOTE | 2022-09-24 16:26 | HO.PSYCHPN ---
Subjective Subjective Date of Service: 09/24/22 Reason For Visit: Suicidal ideation Interim History: very positive, effervescent. overly social, reaching out to tell MD how wonderful he is in the [place]. feels he is thinking more clearly today. per staff, grandiose, pleasant. wants to take meds. eating and sleeping well. Mental Status Exam Mental Status Exam Narrative: adequately dressed and groomed. some PMA of excited gestures. cooperative. speech incr rate and amount. incr loudness, decr latency, nml prosody. thoughts linear and questionably logical. affect less labile, full-range, hyper-intense. no SI/SIBI/HI/AVH expressed. Diagnostics Vital Signs (24Hr): Vital Signs - 24 hr 09/23/22 18:00 09/24/22 09:17 Temperature 97.4 F Pulse Rate 75 69 Respiratory Rate 18 Blood Pressure 147/67 H 128/81 Pulse Oximetry 100 Oxygen Delivery Method Room Air BMI result Body Mass Index 22.8 Labs 09/21/22 01:24 09/22/22 09:33 Medications Medications Current Medications Acetaminophen (Acetaminophen 325 Mg Tablet) 650 mg PO Q6H PRN PRN Reason: Headache/Pain Mild Scale (1-3) Al Hydroxide/Mg Hydroxide (Magnesium Hydrox/Alum Hydrox 30 Ml Oral.Susp) 30 ml PO Q6H PRN PRN Reason: Heartburn/Nausea Haloperidol (Haloperidol 5 Mg Tablet) 5 mg PO BEDTIME [facility] Last Admin: 09/23/22 19:19 Dose: 5 mg Hydroxyzine HCl (Hydroxyzine Hcl 50 Mg Tablet) 50 mg PO Q6H PRN PRN Reason: Anxiety Hydroxyzine HCl (Hydroxyzine Hcl 50 Mg Tablet) 50 mg PO BEDTIME [facility] Last Admin: 09/23/22 19:19 Dose: 50 mg Magnesium Hydroxide (Milk Of Magnesia 30 Ml Oral.Susp) 30 ml PO DAILY PRN PRN Reason: Constipation Nicotine Polacrilex (Nicotine Polacrilex 2 Mg Gum) 4 mg BUCCAL Q2H PRN PRN Reason: Nicotine Cravings Last Admin: 09/22/22 13:48 Dose: 4 mg Olanzapine (Olanzapine Odt 10 Mg Tab.Rapdis) 10 mg TRANSLINGU BID PRN PRN Reason: agitation/psychosis Trazodone HCl (Trazodone Hcl 50 Mg Tablet) 50 mg PO BEDTIME MRX1 PRN PRN Reason: Insomnia Allergies Allergies Allergy/AdvReac Type Severity Reaction Status Date / Time No Known Allergies Allergy Unverified 01/26/20 15:35 [No Known Allergies*] Assessment & Plan Assessment & Plan (1) Acute psychosis: Status: Acute Code(s): F23 - Brief psychotic disorder Plan 09/22: start haldol 2 mg now and 5 mg QHS. 09/23: pt refused meds last night. slept 5 hours, described as grandiose. states this morning he will take medications and follow rules. one time haldol 5 mg ordered. 09/24: taking haldol now, very positive, ebullient. T/C starting mood stabilizer if adequate improvement is not seen with haldol alone. Reason for continued inpatient stay Substantial Risk for: inability to function and rapid decompensation Time Spent With Patient Time: Total time managing care of this patient today _25___ minutes.
[2022-09-24 20:18] VITALS: BP 127/84; PULSE 73; RESP 16; TEMP 36.2; O2SAT 100
[2022-09-24] MEDS: HaloperidoL 5 MG TABLET PO (22:12)
[2022-09-24] MEDS: hydrOXYzine HCL 50 MG TABLET PO (22:13)
[2022-09-25 07:00] VITALS: BMI 23.2
[2022-09-25 08:30] VITALS: BP 130/89; PULSE 91; RESP 20; TEMP 36.6; O2SAT 98
--- NOTE | 2022-09-25 12:57 | P.PNPSI_ITS ---
Subjective Subjective Date of Service: 09/25/22 Reason For Visit: Suicidal ideation Subjective Notes: 3 Day Interim History: Pt reports he is better and asks when he will be discharged. He reports he hears voice of God telling him that he is fine and doesn't need medications. Pt reports he took medication last night and his mind was racing. He states he feels better without medication. He does have some insight as to reporting that he was not sleeping, not doing well which he attributes to synthetic cannabis he was having. He denies SI/HI. Per nursing, pt slept better. Continues with taoism preoccupations. No behavioral concerns. Medication Compliance: Intermittent Side effects from medications: No Attending Groups: No Diagnostics Vital Signs (24Hr): Vital Signs - 24 hr 09/24/22 20:18 09/25/22 08:30 Temperature 97.2 F 97.8 F Pulse Rate 73 91 Respiratory Rate 16 20 Blood Pressure 127/84 130/89 Pulse Oximetry 100 98 Oxygen Delivery Method Room Air BMI result Body Mass Index 22.8 Labs 09/21/22 01:24 09/22/22 09:33 Medications Medications Current Medications Acetaminophen (Acetaminophen 325 Mg Tablet) 650 mg PO Q6H PRN PRN Reason: Headache/Pain Mild Scale (1-3) Al Hydroxide/Mg Hydroxide (Magnesium Hydrox/Alum Hydrox 30 Ml Oral.Susp) 30 ml PO Q6H PRN PRN Reason: Heartburn/Nausea Haloperidol (Haloperidol 5 Mg Tablet) 5 mg PO BEDTIME [facility] Last Admin: 09/24/22 22:12 Dose: 5 mg Hydroxyzine HCl (Hydroxyzine Hcl 50 Mg Tablet) 50 mg PO Q6H PRN PRN Reason: Anxiety Hydroxyzine HCl (Hydroxyzine Hcl 50 Mg Tablet) 50 mg PO BEDTIME [facility] Last Admin: 09/24/22 22:13 Dose: 50 mg Magnesium Hydroxide (Milk Of Magnesia 30 Ml Oral.Susp) 30 ml PO DAILY PRN PRN Reason: Constipation Nicotine Polacrilex (Nicotine Polacrilex 2 Mg Gum) 4 mg BUCCAL Q2H PRN PRN Reason: Nicotine Cravings Last Admin: 09/22/22 13:48 Dose: 4 mg Olanzapine (Olanzapine Odt 10 Mg Tab.Rapdis) 10 mg TRANSLINGU BID PRN PRN Reason: agitation/psychosis Trazodone HCl (Trazodone Hcl 50 Mg Tablet) 50 mg PO BEDTIME X1 PRN PRN Reason: Insomnia Allergies Allergies Allergy/AdvReac Type Severity Reaction Status Date / Time No Known Allergies Allergy Unverified 01/26/20 15:35 [No Known Allergies*] Assessment & Plan Assessment & Plan (1) Acute psychosis: Status: Acute Code(s): F23 - Brief psychotic disorder Plan 09/22: start haldol 2 mg now and 5 mg QHS. 09/23: pt refused meds last night. slept 5 hours, described as grandiose. states this morning he will take medications and follow rules. one time haldol 5 mg ordered. 09/24: taking haldol now, very positive, ebullient. T/C starting mood stabilizer if adequate improvement is not seen with haldol alone. 09/25 encourage pt to continue medication. this technical proposal writer offered different medication but he declines any medication. Reason for continued inpatient stay Substantial Risk for: inability to function Time Spent With Patient Time: Total time managing care of this patient today ____ minutes.
[2022-09-25 20:47] VITALS: BP 140/77; PULSE 65; RESP 16; TEMP 36.4; O2SAT 98
[2022-09-25] MEDS: hydrOXYzine HCL 50 MG TABLET PO (22:02)
[2022-09-25] MEDS: HaloperidoL 5 MG TABLET PO (22:02)
[2022-09-25] MEDS: LORazepam 1 MG TABLET PO (22:02)
[2022-09-26 08:45] VITALS: BP 120/69; PULSE 83; RESP 20; TEMP 36.6; O2SAT 100
--- NOTE | 2022-09-26 16:14 | P.PNPSI_ITS ---
Subjective Subjective Date of Service: 09/26/22 Reason For Visit: Suicidal ideation Interim History: very positive and energetic. excessively thanks MD. hardinges he had been using synthetic marijuana, 90% THC per his report, prior to admission, which he believes may have been associated with his recent mental health Sx. he states he had very little sleep for about a week prior to presentation. he appears open to the idea he has mental illness and needs to take medication, but on the other hand expresses discomfort with the way he believes the medication has left him feeling. he agrees to DC haldol and start zyprexa instead. per staff, 3- day up 09/29. attending some groups. pacing, racing thoughts, pleasant. running in [place]. c/o DFA. slept soundly once asleep however. Mental Status Exam Mental Status Exam Narrative: adequately dressed and groomed. some PMA of excited gestures. cooperative. speech incr rate and amount. incr loudness, decr latency, nml prosody. t houghts linear and generally logical. affect less labile, full-range, hyper- intense. no SI/SIBI/HI/AVH expressed. Diagnostics Vital Signs (24Hr): Vital Signs - 24 hr 09/25/22 20:47 09/26/22 08:45 Temperature 97.6 F 97.8 F Pulse Rate 65 83 Respiratory Rate 16 20 Blood Pressure 140/77 H 120/69 Pulse Oximetry 98 100 Oxygen Delivery Method Room Air Room Air BMI result Body Mass Index 23.2 Labs 09/21/22 01:24 09/22/22 09:33 Medications Medications Current Medications Acetaminophen (Acetaminophen 325 Mg Tablet) 650 mg PO Q6H PRN PRN Reason: Headache/Pain Mild Scale (1-3) Al Hydroxide/Mg Hydroxide (Magnesium Hydrox/Alum Hydrox 30 Ml Oral.Susp) 30 ml PO Q6H PRN PRN Reason: Heartburn/Nausea Hydroxyzine HCl (Hydroxyzine Hcl 50 Mg Tablet) 50 mg PO Q6H PRN PRN Reason: Anxiety Hydroxyzine HCl (Hydroxyzine Hcl 50 Mg Tablet) 50 mg PO BEDTIME [facility] Last Admin: 09/25/22 22:02 Dose: 50 mg Magnesium Hydroxide (Milk Of Magnesia 30 Ml Oral.Susp) 30 ml PO DAILY PRN PRN Reason: Constipation Nicotine Polacrilex (Nicotine Polacrilex 2 Mg Gum) 4 mg BUCCAL Q2H PRN PRN Reason: Nicotine Cravings Last Admin: 09/22/22 13:48 Dose: 4 mg Olanzapine (Olanzapine Odt 10 Mg Tab.Rapdis) 10 mg TRANSLINGU BID PRN PRN Reason: agitation/psychosis Olanzapine (Olanzapine 2.5 Mg Tablet) 2.5 mg PO BEDTIME [facility] Trazodone HCl (Trazodone Hcl 50 Mg Tablet) 50 mg PO BEDTIME MRX1 PRN PRN Reason: Insomnia Allergies Allergies Allergy/AdvReac Type Severity Reaction Status Date / Time No Known Allergies Allergy Unverified 01/26/20 15:35 [No Known Allergies*] Assessment & Plan Assessment & Plan (1) Acute psychosis: Status: Acute Code(s): F23 - Brief psychotic disorder Plan 09/22: start haldol 2 mg now and 5 mg QHS. 09/23: pt refused meds last night. slept 5 hours, described as grandiose. states this morning he will take medications and follow rules. one time haldol 5 mg ordered. 09/24: taking haldol now, very positive, ebullient. T/C starting mood stabilizer if adequate improvement is not seen with haldol alone. 09/25: encourage pt to continue medication. this speech writer offered different medication but he declines any medication. 09/26: c/o side effects from haldol. DC haldol and start zyprexa. DC ativan as pt has alcohol Hx. Reason for continued inpatient stay Substantial Risk for: inability to function and rapid decompensation Time Spent With Patient Time: Total time managing care of this patient today __25__ minutes.
[2022-09-26 20:38] VITALS: BP 132/82; PULSE 82; RESP 18; TEMP 36.4; O2SAT 99
[2022-09-26] MEDS: hydrOXYzine HCL 50 MG TABLET PO (20:57)
[2022-09-26] MEDS: OLANZapine 2.5 MG TABLET PO (20:57)
[2022-09-27 09:10] VITALS: BP 151/81; PULSE 73; RESP 18; TEMP 36.5; O2SAT 100
--- NOTE | 2022-09-27 09:33 | HO.PSYCHPN ---
Subjective Subjective Date of Service: 09/27/22 Reason For Visit: Suicidal ideation Subjective Notes: Conditional Voluntary and 3 Day Healthcare Proxy: No Guardianship: No Medical Problems Affecting Mental Status: No Interim History: Patient was seen and discussed in rounds today. Records and plans were reviewed. He continues to be somewhat guarded but is pleasant and interactive. He is somewhat anxious and pacing. Attending some groups. Eating adequately but had a hard time sleeping but did not want any additional medications. No SI. No changes were made today Medication Compliance: Yes Side effects from medications: No Review of Systems Review of Systems Sleep Yes all other systems are reviewed and are negative Mental Status Exam Mental Status Exam Narrative: In today's visit he is alert, oriented and pleasant. Normal speech. Good eye contact. Affect is appropriate and varied. No signs of psychosis. No SI. Denies any AVH. Cognitively is intact. Judgment is intact Diagnostics Vital Signs (24Hr): Vital Signs - 24 hr 09/26/22 20:38 09/27/22 09:10 Temperature 97.6 F 97.7 F Pulse Rate 82 73 Respiratory Rate 18 18 Blood Pressure 132/82 151/81 H Pulse Oximetry 99 100 Oxygen Delivery Method Room Air Room Air BMI result Body Mass Index 23.2 Labs 09/21/22 01:24 09/22/22 09:33 Medications Medications Current Medications Acetaminophen (Acetaminophen 325 Mg Tablet) 650 mg PO Q6H PRN PRN Reason: Headache/Pain Mild Scale (1-3) Al Hydroxide/Mg Hydroxide (Magnesium Hydrox/Alum Hydrox 30 Ml Oral.Susp) 30 ml PO Q6H PRN PRN Reason: Heartburn/Nausea Hydroxyzine HCl (Hydroxyzine Hcl 50 Mg Tablet) 50 mg PO Q6H PRN PRN Reason: Anxiety Hydroxyzine HCl (Hydroxyzine Hcl 50 Mg Tablet) 50 mg PO BEDTIME [facility] Last Admin: 09/26/22 20:57 Dose: 50 mg Magnesium Hydroxide (Milk Of Magnesia 30 Ml Oral.Susp) 30 ml PO DAILY PRN PRN Reason: Constipation Nicotine Polacrilex (Nicotine Polacrilex 2 Mg Gum) 4 mg BUCCAL Q2H PRN PRN Reason: Nicotine Cravings Last Admin: 09/22/22 13:48 Dose: 4 mg Olanzapine (Olanzapine Odt 10 Mg Tab.Rapdis) 10 mg TRANSLINGU BID PRN PRN Reason: agitation/psychosis Olanzapine (Olanzapine 2.5 Mg Tablet) 2.5 mg PO BEDTIME [facility] Last Admin: 09/26/22 20:57 Dose: 2.5 mg Trazodone HCl (Trazodone Hcl 50 Mg Tablet) 50 mg PO BEDTIME MRX1 PRN PRN Reason: Insomnia Allergies Allergies Allergy/AdvReac Type Severity Reaction Status Date / Time No Known Allergies Allergy Unverified 01/26/20 15:35 [No Known Allergies*] Assessment & Plan Assessment & Plan (1) Acute psychosis: Status: Acute Code(s): F23 - Brief psychotic disorder Plan 09/22: start haldol 2 mg now and 5 mg QHS. 09/23: pt refused meds last night. slept 5 hours, described as grandiose. states this morning he will take medications and follow rules. one time haldol 5 mg ordered. 09/24: taking haldol now, very positive, ebullient. T/C starting mood stabilizer if adequate improvement is not seen with haldol alone. 09/25: encourage pt to continue medication. this telegraphic typewriter installer offered different medication but he declines any medication. 09/26: c/o side effects from haldol. DC haldol and start zyprexa. DC ativan as pt has alcohol Hx. 09/27: Continue current regimen and plans. Reason for continued inpatient stay Substantial Risk for: med/psych decompensation Time Spent With Patient Time: Total time managing care of this patient today ____ minutes.
[2022-09-27] MEDS: hydrOXYzine HCL 50 MG TABLET PO ×2 (09:48→16:13)
[2022-09-27] MEDS: OLANZapine ODT 10 MG TAB.RAPDIS TRANSLINGU (15:00)
[2022-09-27 18:00] VITALS: BP 127/64; PULSE 64; RESP 16; TEMP 36.6; O2SAT 95
--- NOTE | 2022-09-27 22:35 | PC.NURSE ---
Carmelo refused his HS medications. Patient took a larger dose of Zyprexa at 1300 and a dose of Atarax at 1600. Patient reported he was feeling sedated from those medications.
[2022-09-28] MEDS: OLANZapine ODT 10 MG TAB.RAPDIS TRANSLINGU ×2 (06:00→15:54)
[2022-09-28 08:30] VITALS: BP 130/74; PULSE 70; RESP 74; TEMP 36.6; O2SAT 74
--- NOTE | 2022-09-28 09:22 | HO.PSYCHPN ---
Subjective Subjective Date of Service: 09/28/22 Reason For Visit: Suicidal ideation Subjective Notes: Conditional Voluntary and 3 Day Healthcare Proxy: No Guardianship: No Medical Problems Affecting Mental Status: No Interim History: Patient was seen and discussed in rounds today. Records and plans were reviewed. He has been stable, pleasant and cooperative. He continues to pace a lot as a way of coping. He is engaged when approached. No symptoms of psychosis. No AVH. He is planning for discharge hopefully this week. Continues to sleep a limited number of hours and is not interested in medications. No SI. No changes were made today Medication Compliance: Yes Side effects from medications: No Review of Systems Review of Systems Sleep Yes all other systems are reviewed and are negative Diagnostics Vital Signs (24Hr): Vital Signs - 24 hr 09/27/22 18:00 Temperature 98 F Pulse Rate 64 Respiratory Rate 16 Blood Pressure 127/64 Pulse Oximetry 95 Oxygen Delivery Method Room Air BMI result Body Mass Index 23.2 Labs 09/21/22 01:24 09/22/22 09:33 Medications Medications Current Medications Acetaminophen (Acetaminophen 325 Mg Tablet) 650 mg PO Q6H PRN PRN Reason: Headache/Pain Mild Scale (1-3) Al Hydroxide/Mg Hydroxide (Magnesium Hydrox/Alum Hydrox 30 Ml Oral.Susp) 30 ml PO Q6H PRN PRN Reason: Heartburn/Nausea Hydroxyzine HCl (Hydroxyzine Hcl 50 Mg Tablet) 50 mg PO Q6H PRN PRN Reason: Anxiety Last Admin: 09/27/22 16:13 Dose: 50 mg Hydroxyzine HCl (Hydroxyzine Hcl 50 Mg Tablet) 50 mg PO BEDTIME [facility] Last Admin: 09/27/22 22:37 Dose: Not Given Magnesium Hydroxide (Milk Of Magnesia 30 Ml Oral.Susp) 30 ml PO DAILY PRN PRN Reason: Constipation Nicotine Polacrilex (Nicotine Polacrilex 2 Mg Gum) 4 mg BUCCAL Q2H PRN PRN Reason: Nicotine Cravings Last Admin: 09/22/22 13:48 Dose: 4 mg Olanzapine (Olanzapine Odt 10 Mg Tab.Rapdis) 10 mg TRANSLINGU BID PRN PRN Reason: agitation/psychosis Last Admin: 09/28/22 06:00 Dose: 10 mg Olanzapine (Olanzapine 2.5 Mg Tablet) 2.5 mg PO BEDTIME [facility] Last Admin: 09/27/22 22:37 Dose: Not Given Trazodone HCl (Trazodone Hcl 50 Mg Tablet) 50 mg PO BEDTIME MRX1 PRN PRN Reason: Insomnia Allergies Allergies Allergy/AdvReac Type Severity Reaction Status Date / Time No Known Allergies Allergy Unverified 01/26/20 15:35 [No Known Allergies*] Assessment & Plan Assessment & Plan (1) Acute psychosis: Status: Acute Code(s): F23 - Brief psychotic disorder Plan 09/22: start haldol 2 mg now and 5 mg QHS. 09/23: pt refused meds last night. slept 5 hours, described as grandiose. states this morning he will take medications and follow rules. one time haldol 5 mg ordered. 09/24: taking haldol now, very positive, ebullient. T/C starting mood stabilizer if adequate improvement is not seen with haldol alone. 09/25: encourage pt to continue medication. this typewriters functional tester offered different medication but he declines any medication. 09/26: c/o side effects from haldol. DC haldol and start zyprexa. DC ativan as pt has alcohol Hx. 09/27: Continue current regimen and plans. 09/28: Continue current plans and regimen Reason for continued inpatient stay Substantial Risk for: med/psych decompensation Time Spent With Patient Time: Total time managing care of this patient today ____ minutes.
[2022-09-28] MEDS: hydrOXYzine HCL 50 MG TABLET PO ×2 (15:54→20:37)
[2022-09-28 20:05] VITALS: BP 148/84; PULSE 106; RESP 18; TEMP 36.6; O2SAT 97
[2022-09-28] MEDS: OLANZapine 2.5 MG TABLET PO (20:37)
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
== END 2022-09-29 10:56 | disposition home or self-care (01) | DRG 751 ==
LOC: HO.ED 13:51 → HO.PADLT16 19:50
PROVIDERS: Psychiatry & Neurology Psychiatry; Admitting Provider Psychiatry & Neurology Psychiatry; Emergency Provider Emergency Medicine Emergency Medical Services; PCP Internal Medicine; Visit Provider Psychiatry & Neurology Psychiatry
DX: F23 Brief psychotic disorder (principal); F41.9 Anxiety disorder, unspecified; Z20.822 Contact with and (suspected) exposure to COVID-19
CPT/HCPCS: 36415; 80053; 80061; 80307; 81003; 82607; 83036; 84439; 84443; 85025; 87635; 99285; J1200; J2060; S9485